=== PATIENT | male | born 2005 | race Caucasian/White ===

== ENCOUNTER 2024-05-25 18:10 | Emergency (ER) | payer OTHER ==
[~2024-05-25] VITALS: Ht 175.3 cm; Wt 63.6 kg
[2024-05-25] MEDS: GLUCAGON INJ 1MG VIAL IV STA (19:10)
[2024-05-25 21:00] VITALS: BP 103/64; TEMP 99.5; O2SAT 99
== END 2024-05-25 21:00 | disposition home or self-care (01) ==
LOC: M ED 18:10
DX: T18.128A Food in esophagus causing other injury, initial encounter (principal)
CPT/HCPCS: 96374; 99284; J1610